=== PATIENT | female | born 1930 | race Caucasian/White ===

== ENCOUNTER → 2018-11-08 | Outpatient (CLI) | payer MEDICARE, OTHER ==
[~2018-11-08] MED LIST: ACETAMINOPHEN325 M1 PO; ALREX5 ML OU; ARMOUR THYROID60 MG PO; ASPIR 8181 MG PO; ASPIRIN81 MG PO; ATORVASTATIN CA10 MG PO; BUMETANIDE1 MG PO; CENTRUM SILVER1 EAC3 PEG; CENTRUM SILVER1 EAC3 PO; COMBIVENT RESPIM4 GM IH; COUMADIN2 MG PO; COUMADIN3 MG PO; CRESTOR10 MG PO; CRESTOR5 MG PO; FISH OIL 1,0001 EAC2 PO; FUROSEMIDE20 MG PO; GABAPENTIN300 MG PO; HYDROCORTISONE10 MG PO; IBANDRONATE SO150 MG PO; KLOR-CON M2020 MEQ PO; LACTULOSE20 GM/30 M PO; LASIX20 MG PO; LEVOXYL88 MCG PO; LORATADINE10 MG PO; LOVENOX60 MG/0.6 SQ; METHYLDOPA250 MG PO; MULTAQ 400MG T400 MG PO; NIACIN500 M2 PO; NIFEDICAL XL30 MG PO; PLAVIX75 MG PO; POTASSIUM CHLO20 ME1 PO; PROVIGIL100 MG PO; SYNTHROID75 MCG PO; TEMAZEPAM15 MG PO; VASOLEX OINTMEN30 GM TOP; WARFARIN SODIU2.5 MG PO; XARELTO10 MG PO
--- NOTE | 2018-11-08 14:26 | Diagnostic Imaging Report ---
Examination: CT head without contrast Clinical Indication: Memory loss. Technique: Transaxial noncontrast images from the skull base through the vertex were obtained. Sagittal and coronal reformatted images were done. Dose modulation, iterative reconstruction, and/or weight based adjustment of the mA/kV was utilized to reduce the radiation dose to as low as reasonably achievable. Comparison: None. Findings: Scalp: No abnormalities. Bones: Intact. No fractures. No blastic or lytic lesions. Brain sulci: Mild volume loss for patient's age. Ventricles: No hydrocephalus. Extra-axial space: No abnormalities. Parenchyma: There are confluent areas of low-attenuation within subcortical and periventricular white matter, nonspecific, but could represent microvascular ischemic disease. No masses, hemorrhage, or acute or chronic cortical based vascular insults. Suprasellar region: No abnormalities. Craniocervical junction: The foramen magnum is patent. No Chiari one malformation. Incidental findings: Atherosclerotic calcification of the cavernous and supraclinoid internal carotid arteries. Impression: 1. No acute intracranial finding. 2. Mild chronic microvascular ischemic change and volume loss. Signed by: Dr. Ila Arroyo M.D. on 11/08/2018 2:23 PM
== END ==
LOC: CT 12:43
PROVIDERS: ATTEND Student in an Organized Health Care Education/Training Program
DX: F03.90 Unspecified dementia, unspecified severity, without behavioral disturbance, psychotic disturbance, mood disturbance, and anxiety (principal)
CPT/HCPCS: 70450